=== PATIENT | female | born 1975 | race Caucasian/White ===

== ENCOUNTER 2016-07-22 11:48 | Observation (INO) | payer OTHER ==
--- NOTE | 2016-07-22 12:52 | PD ---
HPI Chief Complaint Patient sent from the office due to proteinuria Date Seen: Jul 22, 2016 Time Seen: 12:38 Travel History International Travel<30 Days: No Contact w/Intl Traveler<30Days: No Known Affected Area: No History of Present Illness HPI Patient is a 41-year-old white female who is at 35 weeks 5 days sent here from Dr. Martinez's office due to 3+ proteinuria. Blood pressure was 132/84 at her office visit today patient states she has a small headache yesterday but that has completely resolved by today Para: 0 : 2 Last Menstrual Period: Jul 22, 2016 (LLOYD is August 21, 2016) Allergies-Medications (Allergen,Severity, Reaction): Coded Allergies: No Known Allergies (Verified Allergy, Mild, 10/19/05) Physical Exam Narrative GENERAL: Well-nourished, well-developed patient. SKIN: Warm and dry. HEAD: Normocephalic and atraumatic. EYES: No scleral icterus. No injection or drainage. ENT: No nasal drainage noted. Mucous membranes pink. Airway patent. NECK: Supple, trachea midline. No JVD. CARDIOVASCULAR: Regular rate and rhythm without murmurs, gallops, or rubs. RESPIRATORY: Breath sounds equal bilaterally. No accessory muscle use. BREASTS: Bilateral exam showed no masses , no retractions, no nipple discharge. ABDOMEN/GI: Abdomen soft, non-tender, bowel sounds present, no rebound, no guarding Gravid to [-] weeks size Fundal Height: [35-] GENITOURINARY: External Genitalia: intact and normal in appearance BUS glands: [-Normal] Cervix: [-] Dilatation: [-] Effacement: [-] Station: [-] Presentation: [-] Membranes: [intact or ruptured] Uterine Contractions: [-] None FHT's: Category: [1-] Baseline: [135-] Reactive: [-] Variability: Moderate Decels: [Absent-] accelerations present EXTREMITIES: No cyanosis or edema. BACK: Nontender without obvious deformity. No CVA tenderness. NEUROLOGICAL: Awake and alert. Motor and sensory grossly within normal limits. Five out of 5 muscle strength in all muscle groups. Normal speech. Data Data Vital Signs Reviewed: Yes Orders Vital Signs (Adult) .ON ADMISSION (07/22/16 12:35) ^ Labor Status (07/22/16 12:35) Urinalysis - C+S If Indicated (07/22/16 12:35) Diet Liquid (07/22/16 Lunch) Cbc No Diff, Includes Plts (07/22/16 12:35) Comprehensive Metabolic Panel (07/22/16 12:35) Uric Acid (07/22/16 12:35) Us Ob Bpp Wo Nst (07/22/16 12:35) Labs Laboratory Tests Test 07/22/16 07/22/16 12:15 13:00 Urine Color YELLOW Urine Turbidity HAZY Urine pH 5.5 Urine Specific [place] 1.026 Urine Protein 100 mg/dL Urine Glucose (UA) NEG mg/dL Urine Ketones NEG mg/dL Urine Occult Blood SMALL Urine Nitrite NEG Urine Bilirubin NEG Urine Urobilinogen LESS THAN 2.0 MG/DL Urine Leukocyte Esterase NEG Urine RBC 1 /hpf Urine WBC 3 /hpf Urine Squamous Epithelial 2 /hpf Cells Urine Calcium Oxalate Crystals FEW /hpf Urine Bacteria FEW /hpf Urine Hyaline Casts 1 /lpf Urine Mucus FEW /lpf Microscopic Urinalysis Comment CULT NOT INDICATED White Blood Count 10.1 TH/MM3 Red Blood Count 4.13 MIL/MM3 Hemoglobin 12.2 GM/DL Hematocrit 36.2 % Mean Corpuscular Volume 87.7 FL Mean Corpuscular Hemoglobin 29.6 PG Mean Corpuscular Hemoglobin 33.7 % Concent Red Cell Distribution Width 13.2 % Platelet Count 149 TH/MM3 Mean Platelet Volume 11.4 FL Sodium Level 141 MEQ/L Potassium Level 4.2 MEQ/L Chloride Level 111 MEQ/L Carbon Dioxide Level 19.7 MEQ/L Anion Gap 10 MEQ/L Blood Urea Nitrogen 15 MG/DL Creatinine 0.85 MG/DL Estimat Glomerular Filtration 74 ML/MIN Rate Random Glucose 67 MG/DL Uric Acid 7.1 MG/DL Calcium Level 9.0 MG/DL Total Bilirubin 0.2 MG/DL Aspartate Amino Transf 19 U/L (AST/SGOT) Alanine Aminotransferase 16 U/L (ALT/SGPT) Alkaline Phosphatase 132 U/L Total Protein 6.2 GM/DL Albumin 2.5 GM/DL MDM Plan 41 yo at 35-36 weeks gestation with proteinuria and elevated blood pressures Will admit for observation Betamethasone for lung maturity Diagnosis Diagnosis: Primary Impression: Gestational hypertension Additional Impressions: 35 weeks gestation of Advanced maternal age, 1st Lori Randolph MD Jul 22, 2016 12:52
[2016-07-22 12:58] LABS: BACTERIA, URINE FEW /hpf; BLOOD, URINE SMALL (NEG); CALCIUM OXALATE CRYSTALS,URINE FEW /hpf; COMMENT (UR) CULT NOT INDICATED; CULTURE IF INDICATED CULT NOT INDICATED; GLUCOSE,URINE NEG (NEG); HYALINE CAST, URINE 1 /lpf (RARE); KETONE, URINE NEG (NEG); MUCUS URINE FEW /lpf (OCC); NITRITE,URINE NEG (NEG); PH, URINE 5.5 (5.0-8.5); SQUAMOUS EPITHELIAL CELL URINE 2 /hpf (0-5); URINE COLOR YELLOW (YELLW/STRAW)
[2016-07-22 12:59] VITALS: BP 158/95; PULSE 77
[2016-07-22 13:34] LABS: HEMATOCRIT 36.2 % (35.0-46.0); MEAN CELL VOLUME 87.7 FL (80.0-100.0); MEAN CORPUSCULAR HEMOGLOBIN 29.6 PG (27.0-34.0); MEAN CORPUSCULAR HGB CONC 33.7 % (32.0-36.0); PLATELET COUNT 149 TH/MM3 (150-450); RED BLOOD COUNT 4.13 MIL/MM3 (4.00-5.30); RED CELL DISTRIBUTION WIDTH 13.2 % (11.6-17.2); REVIEW FLAG FINAL; WHITE BLOOD COUNT 10.1 TH/MM3 (4.0-11.0)
[2016-07-22 13:54] LABS: ALT (GPT) 16 U/L (10-53); ANION GAP 10 MEQ/L (5-15); AST (GOT) 19 U/L (15-37); BICARBONATE 19.7 MEQ/L (21.0-32.0); BLOOD UREA NITROGEN 15 MG/DL (7-18); CHLORIDE 111 MEQ/L (98-107); GLOMERULAR FILTRATION RATE 74 ML/MIN (>89); POTASSIUM 4.2 MEQ/L (3.5-5.1); SODIUM (NA) 141 MEQ/L (136-145); URIC ACID 7.1 MG/DL (2.6-6.0)
[2016-07-22 13:57] LABS: ALKALINE PHOSPHATASE 132 U/L (45-117); TOTAL BILIRUBIN ADULT 0.2 MG/DL (0.2-1.0)
[2016-07-22] MEDS ORDERED: ZOLPIDEM TARTRATE 5 MG TAB PO PRN (14:15)
[2016-07-22] MEDS ORDERED: ACETAMINOPHEN 325 MG TAB PO PRN (14:15)
[2016-07-22] MEDS ORDERED: SODIUM CHLORIDE 0.9% FLUSH 5 ML FLUSH IVF PRN (14:15)
[2016-07-22] MEDS ORDERED: ONDANSETRON ODT 4 MG TAB PO PRN (14:15)
[2016-07-22 16:40] VITALS: BP 154/88; PULSE 78
[2016-07-22 16:41] VITALS: RESP 20
[2016-07-22] MEDS: BETAMETHASONE SOD PHOS/ACETATE SUSP 30 MG/5 ML VIAL IM SCH (16:54)
[2016-07-22 19:28] VITALS: BP 152/94; PULSE 79
[2016-07-22 19:29] VITALS: RESP 18; TEMP 98.3
[2016-07-22] MEDS ORDERED: SODIUM CHLORIDE 0.9% FLUSH 5 ML FLUSH IVF SCH (21:00)
[2016-07-22 23:19] VITALS: BP 136/68; PULSE 85
[2016-07-23 02:30] VITALS: BP 123/55; PULSE 71
[2016-07-23 04:28] LABS: AUTOMATED NEUTROPHIL # 10.9 TH/MM3 (1.8-7.7); BASOPHIL % 0.2 % (0.0-2.0); EOSINOPHIL % 0.1 % (0.0-4.0); HEMATOCRIT 36.3 % (35.0-46.0); HEMO FLAGS DIFF FINAL; LYMPHOCYTE # 1.2 TH/MM3 (1.0-4.8); MEAN CELL VOLUME 87.9 FL (80.0-100.0); MEAN CORPUSCULAR HEMOGLOBIN 29.8 PG (27.0-34.0); MONO % 1.5 % (0.0-8.0); NEUT % 88.2 % (16.0-70.0); PLATELET COUNT 163 TH/MM3 (150-450); RED BLOOD COUNT 4.13 MIL/MM3 (4.00-5.30); RED CELL DISTRIBUTION WIDTH 13.1 % (11.6-17.2); WHITE BLOOD COUNT 12.4 TH/MM3 (4.0-11.0)
[2016-07-23 05:19] LABS: INDIRECT BILIRUBIN 0.1 MG/DL (0.0-0.8); TOTAL BILIRUBIN ADULT 0.2 MG/DL (0.2-1.0)
[2016-07-23 07:06] VITALS: BP 124/68; PULSE 83
[2016-07-23 07:08] VITALS: RESP 20; TEMP 98
[2016-07-23] MEDS ORDERED: MULTIVIT/MIN/PREN/FOL AC/IRON PRENATAL TAB PO SCH (09:00)
[2016-07-23 11:37] VITALS: BP 143/74; PULSE 98
[2016-07-23 11:47] VITALS: TEMP 98
[2016-07-23 12:00] VITALS: RESP 18
--- NOTE | 2016-07-23 12:55 | HHI.PR ---
Subjective Remarks Doing well, Slight h/a. no scotoma or RUQ pain Ready to go home. Objective Vital Signs Date Time Temp Pulse Resp B/P Pulse Ox O2 Delivery O2 Flow Rate FiO2 07/23/16 12:00 18 07/23/16 11:47 98.0 07/23/16 11:37 98 143/74 07/23/16 07:08 20 07/23/16 07:08 98.0 07/23/16 07:06 83 124/68 07/23/16 02:30 71 123/55 07/22/16 23:19 85 136/68 07/22/16 19:29 98.3 18 07/22/16 19:28 79 152/94 07/22/16 16:41 20 07/22/16 16:40 78 154/88 07/22/16 12:59 77 158/95 Result Diagram: 07/23/16 0410 07/22/16 1300 Other Results Chest clear CV RRR Abd gravid Ext +1 swelling face, hands and feet,. DTRs are +3 no clonus Assessment and Plan Problem List: (1) 35 weeks gestation of Status: Acute (2) Advanced maternal age, 1st Status: Acute Assessment and Plan HD #1 Preeclampsia labs are normal and bp are acceptable, will d/c home and go to bedrest Will return for S.S of preeclampsia. . Daniel Sepulveda MD Jul 23, 2016 12:55
[2016-07-23] MEDS: BETAMETHASONE SOD PHOS/ACETATE SUSP 30 MG/5 ML VIAL IM SCH (13:25)
[2016-07-23 14:25] LABS: URINE TOTAL PROTEIN TIMED 217.2 MG/DL
== END 2016-07-23 13:57 | disposition home or self-care (01) ==
LOC: HOBED 11:48 → H2EA 14:25
PROVIDERS: ADMIT Obstetrics & Gynecology; ATTEND Obstetrics & Gynecology
DX: O14.93 Unspecified pre-eclampsia, third trimester (principal); O09.523 Supervision of elderly multigravida, third trimester; Z3A.35 35 weeks gestation of pregnancy
CPT/HCPCS: 36415; 76816; 76819; 76820; 80053; 80076; 81001; 84157; 84550; 85025; 85027; 99285; G0378; J0702

== ENCOUNTER 2016-07-29 12:09 | Inpatient (IN) | payer OTHER ==
[2016-07-29] VITALS (29 sets, daily range): BP systolic 121–158; BP diastolic 82–99; PULSE 65–103; RESP 14–18; TEMP 98.1–98.6
[~2016-07-29] VITALS: Ht 167.6 cm; Wt 83.0 kg
[2016-07-29] MEDS ORDERED: SODIUM CHLORIDE 0.9% FLUSH 5 ML FLUSH IVF SCH (12:30)
[2016-07-29] MEDS ORDERED: ALUMINUM/MAGNESIUM/SIMETH 30 ML CUP PO PRN (12:30)
[2016-07-29] MEDS ORDERED: ACETAMINOPHEN 325 MG TAB PO PRN (12:30)
[2016-07-29] MEDS ORDERED: ONDANSETRON ODT 4 MG TAB PO PRN (12:30)
[2016-07-29] MEDS ORDERED: SODIUM CHLORIDE 0.9% FLUSH 5 ML FLUSH IVF PRN (12:30)
[2016-07-29] MEDS ORDERED: BETAMETHASONE SOD PHOS/ACETATE SUSP 30 MG/5 ML VIAL IM SCH (12:30)
[2016-07-29] MEDS ORDERED: ZOLPIDEM TARTRATE 5 MG TAB PO PRN (12:30)
[2016-07-29] MEDS ORDERED: LACTATED RINGER'S 1000 ML INJ 1,000 ML IV SCH (13:00)
[2016-07-29 13:55] LABS: BACTERIA, URINE MOD /hpf; BLOOD, URINE SMALL (NEG); COMMENT (UR) CULTURE INDICATED; CULTURE IF INDICATED CULTURE INDICATED; GLUCOSE,URINE NEG (NEG); HYALINE CAST, URINE 8 /lpf (RARE); KETONE, URINE NEG (NEG); MUCUS URINE FEW /lpf (OCC); NITRITE,URINE NEG (NEG); SQUAMOUS EPITHELIAL CELL URINE 11 /hpf (0-5); URINE COLOR YELLOW (YELLW/STRAW)
[2016-07-29 13:55] LABS: AUTOMATED NEUTROPHIL # 6.3 TH/MM3 (1.8-7.7); BASOPHIL % 0.3 % (0.0-2.0); EOSINOPHIL # 0.2 TH/MM3 (0-0.4); EOSINOPHIL % 1.8 % (0.0-4.0); HEMATOCRIT 37.2 % (35.0-46.0); HEMO FLAGS DIFF FINAL; LYMPH % 24.3 % (9.0-44.0); LYMPHOCYTE # 2.3 TH/MM3 (1.0-4.8); MEAN CELL VOLUME 87.6 FL (80.0-100.0); MEAN CORPUSCULAR HEMOGLOBIN 28.8 PG (27.0-34.0); MEAN CORPUSCULAR HGB CONC 32.9 % (32.0-36.0); MONO % 7.8 % (0.0-8.0); NEUT % 65.8 % (16.0-70.0); PLATELET COUNT 156 TH/MM3 (150-450); RED BLOOD COUNT 4.25 MIL/MM3 (4.00-5.30); RED CELL DISTRIBUTION WIDTH 13.1 % (11.6-17.2); WHITE BLOOD COUNT 9.5 TH/MM3 (4.0-11.0)
[2016-07-29 14:03] LABS: AMPHETAMINE, URINE NEG (NEG); BARBITURATES, URINE NEG (NEG); COCAINE, URINE NEG (NEG)
[2016-07-29 14:24] LABS: POTASSIUM 3.9 MEQ/L (3.5-5.1); URIC ACID 9.6 MG/DL (2.6-6.0)
--- NOTE | 2016-07-29 15:10 | HHI.HP ---
HPI Chief Complaint admitted directly from office for hypertension in with proteinuria, PreEclampsia Date Seen: Jul 29, 2016 Time Seen: 14:00 Travel History International Travel<30 Days: No Contact w/Intl Traveler<30Days: No Known Affected Area: No History of Present Illness HPI 41 yo with single female IUP at 36w5d by LMP & embryo transfer (with Dr. Pepito Cota in [facility]), EDC 08/21/16, seen in office for visit , has been monitored more closely over past week due to new c/o headache at office visit 07/22/16, had workup and hospital evaluation at that time including 2 doses of betamethasone. 24h urine at that time showed protein <300mg and BPs were mild range. Pt has had twice/week visits this week with repeat 24h urine and PIH labs showing drastic changes, 24h urine protein >2.6 grams. Uric acid now 9.6 and plts dropping 156 most recent. BPs remain mild range and pt asymptomatic but due to proximity to term decision to admit for serial monitoring and possible induction of labor. Currently pt rates pain as 0/10 in pelvis, no contractions, no LOF or VB, good FM. No headache, vision changes, RUQ pain, nausea or edema. at bedside. 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 FIORD[employer]A) advanced maternal age h/o cervical dysplasia h/o PCOS Obstetric History Obstetric History G1 = MAB 2009 G2 = current, ECC 08/21/16, female, product of frozen embryo transfer Past Surgical History Narrative Surgical colposcopy 2012 LEE 2014 Family History Family History: Negative Social History Alcohol Use: No Tobacco Use: No Substance Abuse: No Allergies-Medications (Allergen,Severity, Reaction): Coded Allergies: No Known Allergies (Verified , 07/22/16) Review of Systems General / Constitutional: Weight Gain (c/w ), No: Fever, Chills, Other Eyes: No: Diploplia, Blurred Vision, Visual changes, Pain, Photophobia HENT: No: Headaches, Vertigo, Lightheadedness Cardiovascular: No: Irregular Rhythm, Chest Pain or Discomfort, Palpitations, Tachycardia, Syncope, Varicosities, Edema, Cyanosis Respiratory: No: Cough, Short of Breath, Other Gastrointestinal: No: Nausea, Vomiting, Diarrhea Genitourinary: Pelvic Pain (pressure in pelvis), No: Decreased Urinary Output , Oliguria Musculoskeletal: No: Limited ROM, Weakness, Cramping, Edema, Pain Skin: No Rash, No Itching, No Dryness, No Lumps, No Change in Pigmentation, No Change in Nails, No Alopecia, No Lesions Neurologic: No: Weakness, Dizziness, Syncope, Focal Abnormalities, Coordination Problem, Headache, Slurred Speech, Seizures Psychiatric: No: Depression, Suicidal Ideations, Homicidal Ideation Endocrine: No: Heat Intolerance, Cold Intolerance, Polydipsia, Polyuria, Other Physical Exam Vital Signs Date Time Temp Pulse Resp B/P Pulse Ox O2 Delivery O2 Flow Rate FiO2 07/29/16 14:26 68 133/89 07/29/16 13:54 65 144/83 07/29/16 13:18 16 07/29/16 13:18 98.1 07/29/16 13:17 79 148/88 Narrative GENERAL: Well-nourished, well-developed patient. SKIN: Warm and dry. HEAD: Normocephalic and atraumatic. EYES: No scleral icterus. No injection or drainage. ENT: No nasal drainage noted. Mucous membranes pink. Airway patent. NECK: Supple, trachea midline. No JVD. CARDIOVASCULAR: Regular rate and rhythm without murmurs, gallops, or rubs. RESPIRATORY: Breath sounds equal bilaterally. No accessory muscle use. BREASTS: deferred. ABDOMEN/GI: Abdomen soft, non-tender, bowel sounds present, no rebound, no guarding Gravid to [36] weeks size Fundal Height: [37] GENITOURINARY: External Genitalia: intact and normal in appearance BUS glands: [wnl] Cervix: [posterior] Dilatation: [cl] Effacement: [th] Station: [-3] Presentation: [vtx] Membranes: [intact] Uterine Contractions: [none] FHT's: Category: [I] Baseline: [130s] Reactive: [y] Variability: [y] Decels: [n] EXTREMITIES: No cyanosis or edema. BACK: Nontender without obvious deformity. No CVA tenderness. NEUROLOGICAL: Awake and alert. Motor and sensory grossly within normal limits. Five out of 5 muscle strength in all muscle groups. Normal speech. Normal reflexes. Data Data Vital Signs Reviewed: Yes Orders Place In Observation (07/29/16 ) Diet Liquid (07/29/16 Lunch) Vital Signs (Adult) GARETH.[id number] AWAKE (07/29/16 12:28) ^ Heart (07/29/16 12:28) Activity Bed Rest With Brp (07/29/16 12:28) Complete Blood Count With Diff (07/29/16 12:28) Basic Metabolic Panel (Bmp) (07/29/16 12:28) Uric Acid (07/29/16 12:28) Urinalysis - C+S If Indicated (07/29/16 12:28) Lactated Ringer's 1000 Ml Inj (Lr 1000 M (07/29/16 13:00) Acetaminophen (Tylenol) (07/29/16 12:30) Al-Mag Hy-Si 40-40-4 Mg/Ml Liq (Mag-Al P (07/29/16 12:30) Sodium Chloride 0.9% Flush (Ns Flush) (07/29/16 12:30) Sodium Chloride 0.9% Flush (Ns Flush) (07/29/16 12:30) Zolpidem (Ambien) (07/29/16 12:30) Ondansetron Odt (Zofran Odt) (07/29/16 12:30) Ob/Psych Drug Screen, Urine (07/29/16 12:28) Hold Clot (07/29/16 12:28) Betamethasone Inj ([place] Soluspan In (07/29/16 12:30) Specimen To Be Collected PRN (07/29/16 12:28) Urine Culture (07/29/16 13:00) Ur Bath Salts (07/29/16 13:00) Ur Heroin (07/29/16 13:00) Ur K2 Spice (07/29/16 13:00) Ur Ecstasy (07/29/16 13:00) Ur Methadone (07/29/16 13:00) Phencyclidine Urine (Pcp) (07/29/16 13:00) Cbc No Diff, Includes Plts (07/29/16 20:00) Comprehensive Metabolic Panel (07/29/16 20:00) Uric Acid (07/29/16 20:00) Diet Heart Healthy (07/29/16 Dinner) Diet Clear Liquid (07/30/16 Breakfast) Cbc No Diff, Includes Plts (07/30/16 05:00) Comprehensive Metabolic Panel (07/30/16 05:00) Uric Acid (07/30/16 05:00) Labs Laboratory Tests Test 07/29/16 07/29/16 13:00 13:33 Urine Color YELLOW Urine Turbidity HAZY Urine pH 6.0 Urine Specific [place] 1.027 Urine Protein 300 Urine Glucose (UA) NEG Urine Ketones NEG Urine Occult Blood SMALL Urine Nitrite NEG Urine Bilirubin NEG Urine Urobilinogen LESS THAN 2.0 Urine Leukocyte Esterase NEG Urine RBC 4 Urine WBC 10 Urine Squamous Epithelial 11 Cells Urine Bacteria MOD Urine Hyaline Casts 8 Urine Mucus FEW Microscopic Urinalysis Comment CULTURE INDICATED Urine Opiates Screen NEG Urine Barbiturates Screen NEG Urine Amphetamines Screen NEG Urine Benzodiazepines Screen NEG Urine Cocaine Screen NEG Urine Cannabinoids Screen NEG White Blood Count 9.5 Red Blood Count 4.25 Hemoglobin 12.2 Hematocrit 37.2 Mean Corpuscular Volume 87.6 Mean Corpuscular Hemoglobin 28.8 Mean Corpuscular Hemoglobin 32.9 Concent Red Cell Distribution Width 13.1 Platelet Count 156 Mean Platelet Volume 12.0 Neutrophils (%) (Auto) 65.8 Lymphocytes (%) (Auto) 24.3 Monocytes (%) (Auto) 7.8 Eosinophils (%) (Auto) 1.8 Basophils (%) (Auto) 0.3 Neutrophils # (Auto) 6.3 Lymphocytes # (Auto) 2.3 Monocytes # (Auto) 0.7 Eosinophils # (Auto) 0.2 Basophils # (Auto) 0.0 CBC Comment DIFF FINAL Differential Comment Sodium Level 140 Potassium Level 3.9 Chloride Level 108 Carbon Dioxide Level 22.0 Anion Gap 10 Blood Urea Nitrogen 16 Creatinine 1.01 Estimat Glomerular Filtration 61 Rate Random Glucose 82 Uric Acid 9.6 Calcium Level 8.3 Band and Hold Date/Time Procedure Status Source Growth 07/29/16 13:00 Urine Culture Received Urine Clean Catch Pending Assessment/Plan Problem List: (1) Pre-eclampsia (2) Gestational [-induced] hypertension without significant proteinuria , third trimester (3) Elderly primigravida in third trimester Assessment and Plan 41 yo with IUP at 35w6d admit for GHTN with proteinuria and lab changes c/w PreEclampsia 1) PreEclampsia: BP mild ranges but labs support severe; pt is tentative to induce and desires repeat labs in 8h; due to no symptoms and mild pressures ok to repeat labs at 8pm, if labs continue to devolve d/w pt cytotec induction; r/b /a including risk of failed induction, risk of ; d/w pt and indication for magnesium sulfate therapy if pressures become severe and/or based on clinical picture; AQA, will plan labs at 8p if all other things remain stable and evaluate for induction at that time Labs: Plts: 193 > 152 UA 8.6 > 9.6 AST 14 > 17 ALT 11 > 10 Hgb 12.2 24h urine 07/27/16: 2642mg protein 2) GBS neg 3) h/o infertility, this is product of frozen embryo transfer with [facility] Dr. Pepito Cota in [facility] 4) AMA: normal anatomy scan, negative cfDNA & msAFP; reassuring testing starting this week in office 5) status: vertex, female, AGA, anterior placenta with accessory lobe posteriorly on imaging Discharge Planning not meeting criteria Kathleen Leung MD Jul 29, 2016 15:10
[2016-07-29 16:20] LABS: ALT (GPT) 13 U/L (10-53); AST (GOT) 17 U/L (15-37)
[2016-07-29 20:14] LABS: HEMATOCRIT 35.8 % (35.0-46.0); MEAN CELL VOLUME 86.4 FL (80.0-100.0); MEAN CORPUSCULAR HEMOGLOBIN 29.1 PG (27.0-34.0); MEAN CORPUSCULAR HGB CONC 33.7 % (32.0-36.0); PLATELET COUNT 160 TH/MM3 (150-450); RED BLOOD COUNT 4.14 MIL/MM3 (4.00-5.30); RED CELL DISTRIBUTION WIDTH 12.8 % (11.6-17.2); REVIEW FLAG FINAL; WHITE BLOOD COUNT 9.7 TH/MM3 (4.0-11.0)
[2016-07-29 20:40] LABS: ALKALINE PHOSPHATASE 138 U/L (45-117); ALT (GPT) 13 U/L (10-53); ANION GAP 8 MEQ/L (5-15); AST (GOT) 13 U/L (15-37); BLOOD UREA NITROGEN 15 MG/DL (7-18); CHLORIDE 109 MEQ/L (98-107); GLOMERULAR FILTRATION RATE 59 ML/MIN (>89); POTASSIUM 3.8 MEQ/L (3.5-5.1); SODIUM (NA) 140 MEQ/L (136-145); TOTAL BILIRUBIN ADULT 0.3 MG/DL (0.2-1.0); URIC ACID 9.7 MG/DL (2.6-6.0)
[2016-07-30] VITALS (71 sets, daily range): BP systolic 133–171; BP diastolic 74–103; PULSE 16–91; RESP 16–18; TEMP 97.7–99
[2016-07-30 05:20] LABS: HEMATOCRIT 35.9 % (35.0-46.0); MEAN CELL VOLUME 87.6 FL (80.0-100.0); MEAN CORPUSCULAR HEMOGLOBIN 29.6 PG (27.0-34.0); MEAN CORPUSCULAR HGB CONC 33.8 % (32.0-36.0); PLATELET COUNT 147 TH/MM3 (150-450); RED BLOOD COUNT 4.09 MIL/MM3 (4.00-5.30); RED CELL DISTRIBUTION WIDTH 13.3 % (11.6-17.2); REVIEW FLAG FINAL; WHITE BLOOD COUNT 11.5 TH/MM3 (4.0-11.0)
[2016-07-30 05:49] LABS: ANION GAP 11 MEQ/L (5-15); AST (GOT) 16 U/L (15-37); BICARBONATE 21.2 MEQ/L (21.0-32.0); BLOOD UREA NITROGEN 14 MG/DL (7-18); CHLORIDE 108 MEQ/L (98-107); GLOMERULAR FILTRATION RATE 62 ML/MIN (>89); POTASSIUM 3.8 MEQ/L (3.5-5.1); SODIUM (NA) 140 MEQ/L (136-145); URIC ACID 9.6 MG/DL (2.6-6.0)
[2016-07-30 05:52] LABS: ALKALINE PHOSPHATASE 138 U/L (45-117); ALT (GPT) 12 U/L (10-53); TOTAL BILIRUBIN ADULT 0.2 MG/DL (0.2-1.0)
--- NOTE | 2016-07-30 08:47 | PD.OB.ANTE ---
Subjective Diagnosis: (1) Pre-eclampsia Diagnosis: Principal (2) Gestational [-induced] hypertension without significant proteinuria , third trimester Diagnosis: Principal (3) Elderly primigravida in third trimester Diagnosis: Secondary Interval History No complaints, denies OQUENDO, vision changes, RUQ pain or edema, no nausea, desires regular diet for breakfast. Pain 0/10. Antepartum ROS: Reports: movement normal, Denies: New complaints, Loss of fluid, Vaginal bleeding, Contractions, Other Objective Vital Signs Vital Signs Date Time Temp Pulse Resp B/P Pulse Ox O2 Delivery O2 Flow Rate FiO2 07/30/16 08:14 98.3 07/30/16 08:04 18 07/30/16 08:00 68 155/99 07/30/16 07:30 75 142/89 07/30/16 07:05 16 07/30/16 07:00 64 157/94 07/30/16 06:37 63 145/93 07/30/16 06:30 72 151/101 07/30/16 06:04 16 07/30/16 06:00 63 151/87 07/30/16 05:30 75 150/95 07/30/16 05:27 98.1 07/30/16 05:26 18 07/30/16 05:00 62 149/90 07/30/16 04:30 64 145/94 07/30/16 04:00 62 139/86 07/30/16 03:30 63 07/30/16 03:30 133/87 07/30/16 03:13 18 07/30/16 03:00 75 134/85 07/30/16 02:30 70 07/30/16 02:30 145/83 07/30/16 02:00 68 141/82 07/30/16 01:30 69 141/87 07/30/16 01:12 97.7 16 07/30/16 01:00 77 150/91 07/30/16 00:50 18 07/30/16 00:30 71 143/78 07/29/16 23:30 69 137/88 07/29/16 22:37 16 07/29/16 22:30 78 139/85 07/29/16 22:00 75 136/85 07/29/16 21:39 16 07/29/16 21:30 77 121/88 07/29/16 21:01 103 3/17/17 21:01 154/99 07/29/16 20:47 98.2 18 07/29/16 20:30 72 149/82 07/29/16 19:51 98.6 18 07/29/16 19:51 16 07/29/16 19:30 72 144/89 07/29/16 19:00 71 136/86 07/29/16 18:30 81 135/90 07/29/16 18:00 71 132/87 07/29/16 17:30 84 156/99 07/29/16 17:05 16 07/29/16 17:00 73 150/91 07/29/16 16:54 98.1 07/29/16 16:41 76 140/94 07/29/16 16:41 14 07/29/16 16:40 70 143/99 07/29/16 15:47 76 158/89 07/29/16 15:32 75 152/85 07/29/16 15:31 87 148/90 07/29/16 15:01 72 132/88 07/29/16 14:37 74 145/82 07/29/16 14:26 68 133/89 07/29/16 13:54 65 144/83 07/29/16 13:18 16 07/29/16 13:18 98.1 07/29/16 13:17 79 148/88 Lab & Micro Results Test 07/29/16 07/29/16 07/29/16 07/30/16 13:00 13:33 20:00 04:52 Urine Color YELLOW Urine Turbidity HAZY Urine pH 6.0 Urine Specific [place] 1.027 Urine Protein 300 mg/dL Urine Glucose (UA) NEG mg/dL Urine Ketones NEG mg/dL Urine Occult Blood SMALL Urine Nitrite NEG Urine Bilirubin NEG Urine Urobilinogen LESS THAN 2.0 MG/DL Urine Leukocyte Esterase NEG Urine RBC 4 /hpf Urine WBC 10 /hpf Urine Squamous Epithelial 11 /hpf Cells Urine Bacteria MOD /hpf Urine Hyaline Casts 8 /lpf Urine Mucus FEW /lpf Microscopic Urinalysis Comment CULTURE INDICATED Urine Opiates Screen NEG Urine Barbiturates Screen NEG Urine Amphetamines Screen NEG Urine Benzodiazepines Screen NEG Urine Cocaine Screen NEG Urine Cannabinoids Screen NEG White Blood Count 9.5 TH/MM3 9.7 TH/MM3 11.5 TH/MM3 Red Blood Count 4.25 MIL/MM3 4.14 MIL/MM3 4.09 MIL/MM3 Hemoglobin 12.2 GM/DL 12.0 GM/DL 12.1 GM/DL Hematocrit 37.2 % 35.8 % 35.9 % Mean Corpuscular Volume 87.6 FL 86.4 FL 87.6 FL Mean Corpuscular Hemoglobin 28.8 PG 29.1 PG 29.6 PG Mean Corpuscular Hemoglobin 32.9 % 33.7 % 33.8 % Concent Red Cell Distribution Width 13.1 % 12.8 % 13.3 % Platelet Count 156 TH/MM3 160 TH/MM3 147 TH/MM3 Mean Platelet Volume 12.0 FL 11.8 FL 12.1 FL Neutrophils (%) (Auto) 65.8 % Lymphocytes (%) (Auto) 24.3 % Monocytes (%) (Auto) 7.8 % Eosinophils (%) (Auto) 1.8 % Basophils (%) (Auto) 0.3 % Neutrophils # (Auto) 6.3 TH/MM3 Lymphocytes # (Auto) 2.3 TH/MM3 Monocytes # (Auto) 0.7 TH/MM3 Eosinophils # (Auto) 0.2 TH/MM3 Basophils # (Auto) 0.0 TH/MM3 CBC Comment DIFF FINAL Differential Comment Sodium Level 140 MEQ/L 140 MEQ/L 140 MEQ/L Potassium Level 3.9 MEQ/L 3.8 MEQ/L 3.8 MEQ/L Chloride Level 108 MEQ/L 109 MEQ/L 108 MEQ/L Carbon Dioxide Level 22.0 MEQ/L 23.0 MEQ/L 21.2 MEQ/L Anion Gap 10 MEQ/L 8 MEQ/L 11 MEQ/L Blood Urea Nitrogen 16 MG/DL 15 MG/DL 14 MG/DL Creatinine 1.01 MG/DL 1.04 MG/DL 0.99 MG/DL Estimat Glomerular Filtration 61 ML/MIN 59 ML/MIN 62 ML/MIN Rate Random Glucose 82 MG/DL 95 MG/DL 99 MG/DL Uric Acid 9.6 MG/DL 9.7 MG/DL 9.6 MG/DL Calcium Level 8.3 MG/DL 8.4 MG/DL 8.4 MG/DL Aspartate Amino Transf 17 U/L 13 U/L 16 U/L (AST/SGOT) Alanine Aminotransferase 13 U/L 13 U/L 12 U/L (ALT/SGPT) Band and Hold Total Bilirubin 0.3 MG/DL 0.2 MG/DL Alkaline Phosphatase 138 U/L 138 U/L Total Protein 5.7 GM/DL 5.4 GM/DL Albumin 2.2 GM/DL 2.1 GM/DL Date/Time Procedure Status Source Growth 07/29/16 13:00 Urine Culture Received Urine Clean Catch Pending Physical Exam GENERAL: Well-nourished, well-developed patient. CARDIOVASCULAR: Regular rate and rhythm without murmurs, gallops, or rubs. RESPIRATORY: Breath sounds equal bilaterally. No accessory muscle use. ABDOMEN/GI: Abdomen soft, non-tender. Fundus: [c/w dates] GENITOURINARY: External Genitalia: defer this check; yesterday CLP FHT's: Category: [I] Baseline: [130s] Reactive: [y] Variability: [y] Decels: [n] EXTREMITIES: No cyanosis or edema, non-tender, without signs of DVT. Assessment and Plan Problem List: (1) Pre-eclampsia Status: Acute (2) Gestational [-induced] hypertension without significant proteinuria , third trimester Status: Acute (3) Elderly primigravida in third trimester Status: Acute Assessment and Plan 41 yo with IUP at 36w6d admit for GHTN with proteinuria and lab changes c/w PreEclampsia 1) PreEclampsia: BP mild ranges on admission but increasing to borderline severe over last 24h; labs also support severe PreE; pt was tentative to induce yesterday, due to no symptoms and mild pressures yesterday labs were repeated at q8h interval and this AM continue to support severe PreE; at this time will allow to eat breakfast, shower, then transfer to labor side and start cytotec induction; continue to monitor closely and will plan magnesium sulfate therapy if pressures become severe and/or based on clinical picture; AQA, pt consents to induction at this time Labs: Plts: 193 > 152 > 147 UA 8.6 > 9.6 > 9.6 AST 17 > 13 > 16 ALT 13 > 13 > 12 Hgb 12.2 > 12.1 24h urine 07/27/16: 2642mg protein 2) GBS neg, aware 3) h/o infertility, this is product of frozen embryo transfer with [facility], aware 4) AMA: normal anatomy scan, negative cfDNA & msAFP; reassuring testing starting this week in office 5) status: vertex, female, AGA, anterior placenta with accessory lobe posteriorly on imaging Kathleen Leung MD Jul 30, 2016 08:47
[2016-07-30] MEDS ORDERED: SODIUM CHLOR 0.9% 1000 ML INJ 1,000 ML OTHER PRN (08:49)
[2016-07-30] MEDS ORDERED: LACTATED RINGER'S 1000 ML INJ 1,000 ML IV PRN (08:49)
[2016-07-30] MEDS ORDERED: ONDANSETRON HCL 4 MG/2 ML VIAL IV PRN (09:00)
[2016-07-30] MEDS ORDERED: OXYTOCIN 30 UNITS-500ML PREMIX 500 ML IV ONE (09:00)
[2016-07-30] MEDS ORDERED: LIDOCAINE HCL 1% 50 ML VIAL I-DERMAL PRN (09:00)
[2016-07-30] MEDS ORDERED: CITRIC ACID-SODIUM CITRATE LIQ 30 ML UDC PO SCH (09:00)
[2016-07-30] MEDS ORDERED: SODIUM CHLORID 0.9% 500 ML INJ 500 ML IV PRN (09:00)
[2016-07-30] MEDS ORDERED: LIDOCAINE HCL 1% 50 ML VIAL INFIL PRN (09:00)
[2016-07-30] MEDS ORDERED: MINERAL OIL 10 ML VIAL TOPICAL PRN (09:00)
[2016-07-30] MEDS ORDERED: SODIUM CHLOR 0.9% 1000 ML INJ 1,000 ML IV PRN (09:09)
[2016-07-30] MEDS ORDERED: CALNTAB (09:47)
[2016-07-30] MEDS ORDERED: MISOPROSTOL 25 MCG SUPP VAGINAL ONE ×2 (10:00→15:30)
[2016-07-30] MEDS ORDERED: PENICILLIN G POTASSIUM INJ 5,000,000 UNITS in SODIUM CHLORIDE 0.9% INJ 100 ML IV ONE (10:30)
[2016-07-30] MEDS: LACTATED RINGER'S 1000 ML INJ 1,000 ML IV SCH ×2 (11:03→16:49)
[2016-07-30] MEDS ORDERED: PENICILLIN G POTASSIUM INJ 2,500,000 UNITS in SODIUM CHLORIDE 0.9% INJ 100 ML IV SCH (14:30)
[2016-07-31] VITALS (196 sets, daily range): BP systolic 122–170; BP diastolic 70–112; PULSE 65–123; RESP 16–18; TEMP 97.5–98.3; O2SAT 94–100
[2016-07-31] MEDS ORDERED: OXYTOCIN 30 UNITS/NS 500ML PREMIX IV SCH
[2016-07-31] MEDS: LACTATED RINGER'S 1000 ML INJ 1,000 ML IV SCH ×3 (00:49→11:00)
[2016-07-31] MEDS ORDERED: fentaNYL 2MCG-BUPIV 0.125% INJ 100 ML ONE (03:18)
[2016-07-31] MEDS ORDERED: NO SYSTEM NARCOTICS XX PRN (04:30)
[2016-07-31] MEDS ORDERED: DO NOT ADMINISTER ANTICOAGULANTS XX PRN (04:30)
[2016-07-31] MEDS ORDERED: fentaNYL 2MCG-BUPIV 0.125% 100 ML EPIDURAL SCH (04:30)
[2016-07-31] MEDS ORDERED: ePHEDrine/NS 25 MG/5 ML SYR IV PRN (04:30)
[2016-07-31] MEDS ORDERED: SODIUM CHLORIDE 0.9% FLUSH 5 ML FLUSH IV PRN ×2 (08:45→09:30)
[2016-07-31] MEDS ORDERED: SODIUM CHLORIDE 0.9% FLUSH 5 ML FLUSH IV SCH (09:00)
[2016-07-31] MEDS ORDERED: MAGNESIUM SULFATE 4 GM PREMIX 100 ML IV ONE (09:15)
[2016-07-31] MEDS ORDERED: CALCIUM GLUCONATE 10% 1 GM/10 ML VIAL IV PUSH PRN (09:15)
--- NOTE | 2016-07-31 09:21 | PD.OB.DELI ---
Delivery Date: Jul 31, 2016 Anesthesia: Epidural Episiotomy: None Vaginal Delivery: Normal (successful induction for PreEclampsia) Presentation: Vertex Nuchal Cord: None Delayed cord clamping (45 sec): Yes Infant: Female One Minute : 8 Five Minute : 8 Weight: 5#5oz Infant Care: Suctioned, Spontaneous crying, Responded to stimulation Placenta: Spontaneous delivery, Intact (accessory anterior lobe delivered with posterior placenta; all intact), 3 vessel cord Laceration: Vaginal laceration, 2 deg Repair: Chromic running Additional Information EBL 100 mL pt induced at 36w6d for severe PreEclampsia, delivered without complication at 37 wks healthy female ; will be treated with IV magnesium sulfate therapy PP for sz ppx Kathleen Leung MD Jul 31, 2016 09:21
[2016-07-31] MEDS ORDERED: DOCUSATE SODIUM 50 MG/SENNA 8.6 MG TAB PO PRN (09:30)
[2016-07-31] MEDS: SODIUM CHLORIDE 0.9% FLUSH 5 ML FLUSH IV SCH (09:30)
[2016-07-31] MEDS ORDERED: BENZOCAINE 20% TOPICAL SPRAY 60 ML CAN TOPICAL PRN (09:30)
[2016-07-31] MEDS ORDERED: WITCH HAZEL 50%/GLYCERIN 12.5% 40 PAD JAR TOPICAL PRN (09:30)
[2016-07-31] MEDS ORDERED: oxyCODONE/ACETAMINOPHEN 5 MG/325 MG TAB PO PRN ×2 (09:30)
[2016-07-31] MEDS ORDERED: ALUMINUM/MAGNESIUM/SIMETH 30 ML CUP PO PRN (09:30)
[2016-07-31] MEDS: MAGNESIUM SULFATE 40 GM PREMIX 1,000 ML IV SCH (09:46)
[2016-07-31] MEDS ORDERED: LABETALOL HCL 100 MG/20 ML VIAL ONE (10:22)
[2016-07-31] MEDS ORDERED: LABETALOL HCL 100 MG/20 ML VIAL IV ONE ×3 (10:30→10:50)
[2016-07-31] MEDS ORDERED: MEASLES, MUMPS, RUBELLA VACCINE 0.5 ML VIAL SQ ONE (16:00)
[2016-07-31] MEDS ORDERED: DIPHTH/TETANUS/ACEL PERTUSSIS (BOOSTER) 0.5 ML VIAL/PFS IM ONE (16:00)
[2016-07-31] MEDS: IBUPROFEN 600 MG TAB PO PRN ×2 (17:25→23:19)
[2016-07-31 18:52] LABS: HEMATOCRIT 37.2 % (35.0-46.0); MEAN CELL VOLUME 88.2 FL (80.0-100.0); MEAN CORPUSCULAR HEMOGLOBIN 28.7 PG (27.0-34.0); MEAN CORPUSCULAR HGB CONC 32.5 % (32.0-36.0); PLATELET COUNT 131 TH/MM3 (150-450); RED BLOOD COUNT 4.22 MIL/MM3 (4.00-5.30); RED CELL DISTRIBUTION WIDTH 13.2 % (11.6-17.2); REVIEW FLAG FINAL; WHITE BLOOD COUNT 18.9 TH/MM3 (4.0-11.0)
[2016-07-31 19:18] LABS: ALKALINE PHOSPHATASE 139 U/L (45-117); ALT (GPT) 14 U/L (10-53); ANION GAP 10 MEQ/L (5-15); AST (GOT) 25 U/L (15-37); BICARBONATE 26.3 MEQ/L (21.0-32.0); BLOOD UREA NITROGEN 13 MG/DL (7-18); CHLORIDE 103 MEQ/L (98-107); GLOMERULAR FILTRATION RATE 62 ML/MIN (>89); POTASSIUM 4.6 MEQ/L (3.5-5.1); SODIUM (NA) 139 MEQ/L (136-145); TOTAL BILIRUBIN ADULT 0.3 MG/DL (0.2-1.0); URIC ACID 8.7 MG/DL (2.6-6.0)
[2016-08-01] VITALS (103 sets, daily range): BP systolic 135–165; BP diastolic 84–96; PULSE 66–92; RESP 16–20; TEMP 97.5–98.1; O2SAT 96–100
[2016-08-01] MEDS: LACTATED RINGER'S 1000 ML INJ 1,000 ML IV SCH (03:17)
[2016-08-01] MEDS: MAGNESIUM SULFATE 40 GM PREMIX 1,000 ML IV SCH (03:19)
[2016-08-01 06:04] LABS: HEMATOCRIT 36.8 % (35.0-46.0); MEAN CELL VOLUME 87.4 FL (80.0-100.0); MEAN CORPUSCULAR HEMOGLOBIN 29.8 PG (27.0-34.0); MEAN CORPUSCULAR HGB CONC 34.1 % (32.0-36.0); PLATELET COUNT 138 TH/MM3 (150-450); RED BLOOD COUNT 4.21 MIL/MM3 (4.00-5.30); RED CELL DISTRIBUTION WIDTH 13.5 % (11.6-17.2); REVIEW FLAG FINAL; WHITE BLOOD COUNT 16.3 TH/MM3 (4.0-11.0)
[2016-08-01 06:22] LABS: ALT (GPT) 15 U/L (10-53); ANION GAP 10 MEQ/L (5-15); AST (GOT) 27 U/L (15-37); BICARBONATE 25.6 MEQ/L (21.0-32.0); BLOOD UREA NITROGEN 10 MG/DL (7-18); CHLORIDE 102 MEQ/L (98-107); GLOMERULAR FILTRATION RATE 69 ML/MIN (>89); POTASSIUM 4.7 MEQ/L (3.5-5.1); SODIUM (NA) 138 MEQ/L (136-145); URIC ACID 8.3 MG/DL (2.6-6.0)
[2016-08-01 06:25] LABS: ALKALINE PHOSPHATASE 121 U/L (45-117); TOTAL BILIRUBIN ADULT 0.3 MG/DL (0.2-1.0)
[2016-08-01] MEDS: IBUPROFEN 600 MG TAB PO PRN (08:40)
[2016-08-01] MEDS: SODIUM CHLORIDE 0.9% FLUSH 5 ML FLUSH IV SCH (08:40)
[2016-08-01] MEDS: LABETALOL HCL 100 MG TAB PO SCH ×2 (08:41→21:37)
--- NOTE | 2016-08-01 08:47 | HHI.OB ---
Subjective Post Day: 1 Remarks PPD#1, Pre-eclampsia; BPR 150/80-90, new labetalol start,no significant c/o. Objective Vitals/I&O Vital Signs Date Time Temp Pulse Resp B/P Pulse Ox O2 Delivery O2 Flow Rate FiO2 08/01/16 08:00 72 149/85 08/01/16 07:28 20 08/01/16 07:25 80 96 08/01/16 07:20 80 98 08/01/16 07:15 77 97 08/01/16 07:10 84 98 08/01/16 07:05 86 97 08/01/16 07:00 75 08/01/16 07:00 84 153/96 97 08/01/16 06:55 83 97 08/01/16 06:50 83 97 08/01/16 06:45 83 97 08/01/16 06:40 82 99 08/01/16 06:35 85 98 08/01/16 06:30 87 97 08/01/16 06:25 87 98 08/01/16 06:20 87 98 08/01/16 06:15 18 08/01/16 06:15 91 100 08/01/16 06:10 69 97 08/01/16 06:05 72 97 08/01/16 06:00 69 142/87 98 08/01/16 06:00 68 08/01/16 05:55 69 97 08/01/16 05:50 68 98 08/01/16 05:45 68 97 08/01/16 05:40 68 97 08/01/16 05:35 74 97 08/01/16 05:30 85 99 08/01/16 05:28 18 08/01/16 05:25 66 98 08/01/16 05:20 66 98 08/01/16 05:15 67 98 08/01/16 05:10 66 98 08/01/16 05:05 77 99 08/01/16 05:01 69 147/85 08/01/16 05:00 75 96 08/01/16 04:55 74 97 08/01/16 04:50 75 99 08/01/16 04:45 87 96 08/01/16 04:40 84 96 08/01/16 04:30 85 97 08/01/16 04:25 89 97 08/01/16 04:20 84 97 08/01/16 04:15 83 18 96 08/01/16 04:10 82 98 08/01/16 04:05 84 97 08/01/16 04:01 86 165/93 08/01/16 04:00 86 98 08/01/16 03:55 84 96 08/01/16 03:50 88 98 08/01/16 03:45 82 97 08/01/16 03:40 84 98 08/01/16 03:35 90 100 08/01/16 03:30 86 100 08/01/16 03:25 86 99 08/01/16 03:20 97.5 08/01/16 03:20 92 100 08/01/16 03:15 71 97 08/01/16 03:14 16 08/01/16 03:10 70 97 08/01/16 03:05 69 97 08/01/16 03:01 71 139/84 08/01/16 03:00 70 18 96 08/01/16 02:55 70 97 08/01/16 02:50 69 97 08/01/16 02:45 70 98 08/01/16 02:40 80 97 08/01/16 02:35 81 97 08/01/16 02:30 72 97 08/01/16 02:25 70 97 08/01/16 02:20 70 97 08/01/16 02:15 70 97 08/01/16 02:10 69 97 08/01/16 02:05 70 96 08/01/16 02:01 69 151/85 08/01/16 02:00 71 96 08/01/16 01:55 72 97 08/01/16 01:50 72 96 08/01/16 01:45 74 98 08/01/16 01:40 80 98 08/01/16 01:35 81 99 08/01/16 01:30 80 97 08/01/16 01:25 81 97 08/01/16 01:20 76 96 08/01/16 01:19 16 08/01/16 01:15 79 97 08/01/16 01:10 84 96 08/01/16 01:05 85 96 08/01/16 01:01 78 151/90 08/01/16 01:00 80 97 08/01/16 01:00 16 08/01/16 00:55 81 97 08/01/16 00:50 90 98 08/01/16 00:45 85 97 08/01/16 00:40 86 96 08/01/16 00:35 82 98 08/01/16 00:30 86 08/01/16 00:30 97 08/01/16 00:25 98 08/01/16 00:25 86 08/01/16 00:20 87 08/01/16 00:20 97 08/01/16 00:15 85 08/01/16 00:15 98 08/01/16 00:10 98 08/01/16 00:10 87 08/01/16 00:05 99 08/01/16 00:05 78 08/01/16 00:01 76 150/89 08/01/16 00:00 79 08/01/16 00:00 97 07/31/16 23:55 82 99 07/31/16 23:51 97.8 07/31/16 23:50 87 100 07/31/16 23:45 81 98 07/31/16 23:40 80 99 07/31/16 23:35 82 98 07/31/16 23:30 83 99 07/31/16 23:25 82 97 07/31/16 23:20 90 97 07/31/16 23:15 80 96 07/31/16 23:11 16 07/31/16 23:10 87 97 07/31/16 23:05 75 96 07/31/16 23:00 82 07/31/16 23:00 77 154/81 96 07/31/16 22:55 79 96 07/31/16 22:50 77 95 07/31/16 22:45 79 95 07/31/16 22:40 79 96 07/31/16 22:35 79 95 07/31/16 22:30 79 95 07/31/16 22:25 79 95 07/31/16 22:20 78 07/31/16 22:20 96 07/31/16 22:15 80 07/31/16 22:15 95 07/31/16 22:10 96 07/31/16 22:10 80 07/31/16 22:05 80 96 07/31/16 22:01 79 155/86 07/31/16 22:00 84 96 07/31/16 21:55 87 96 3/19/17 21:45 86 96 1917 21:40 89 96 17 21:35 88 97 17 21:30 91 97 17 21:25 90 97 17 21:21 16 17 21:20 89 96 17 21:15 91 98 17 21:10 100 98 17 21:05 91 98 17 21:01 90 162/93 17 21:00 89 97 17 20:55 89 96 17 20:50 91 98 17 20:45 93 98 17 20:40 96 99 17 20:35 96 97 17 20:30 90 98 17 20:25 90 97 17 20:23 84 141/85 17 20:20 83 98 17 20:18 98.3 17 20:18 16 17 20:15 91 98 17 20:10 88 98 17 20:05 90 97 17 20:00 83 17 20:00 88 162/96 98 17 19:55 97 17 19:55 91 17 19:50 98 17 19:50 83 17 19:45 96 17 19:45 79 17 19:40 97 1917 19:40 81 1917 19:35 88 17 19:35 98 1917 19:30 97 1917 19:30 85 19/17 19:25 85 1917 19:25 97 17 19:20 96 17 19:20 82 17 19:15 86 17 19:15 97 17 19:10 84 17 19:10 97 1917 19:05 97 17 19:05 88 17 19:00 84 97 17 18:55 88 96 3/19/17 18:50 86 97 /19/17 18:45 91 97 /19/17 18:40 89 96 19/17 18:35 89 96 19/17 18:25 94 97 19/17 18:20 86 97 19/17 18:15 85 97 19/17 18:10 87 97 19/17 18:05 89 96 19/17 18:00 82 147/91 96 19/17 18:00 84 19/17 17:55 83 96 19/17 17:50 84 97 19/17 17:45 86 96 19/17 17:40 87 97 19/17 17:35 87 98 19/17 17:30 89 96 19/17 17:25 90 96 19/17 17:20 88 96 19/17 17:15 91 97 19/17 17:10 81 96 19/17 17:05 82 97 19/17 17:00 81 19/17 17:00 17 19/17 17:00 82 144/90 96 19/17 16:55 83 96 19/17 16:50 82 95 19/17 16:45 84 96 19/17 16:41 83 142/87 19/17 16:40 82 95 /19/17 16:35 82 95 /19/17 16:30 81 95 319/17 16:25 81 95 19/17 16:20 82 96 19/17 16:15 82 96 19/17 16:10 85 95 19/17 16:05 83 95 19/17 16:00 18 19/17 16:00 84 94 19/17 15:55 83 95 3/19/17 15:50 87 95 3/19/17 15:45 87 94 3/19/17 15:40 87 95 3/19/17 15:35 89 97 3/19/17 15:30 92 97 /19/17 15:05 91 151/94 19/17 15:00 17 19/17 15:00 97.7 19/17 14:25 94 97 3/19/17 14:20 92 97 17 14:15 89 97 07/31/17 14:00 99 97 07/31/17 13:55 87 97 07/31/17 13:52 88 142/79 07/31/17 13:50 86 96 07/31/17 13:45 85 96 07/31/17 13:40 87 95 07/31/17 13:35 85 96 17 13:30 85 96 17 13:25 87 96 17 13:20 88 96 07/31/17 13:15 92 95 17 13:10 94 96 17 13:05 99 97 17 13:00 97 95 17 13:00 18 17 12:55 96 94 17 12:44 94 145/87 17 11:40 94 159/96 97 07/31/17 11:40 96 17 11:35 97 98 17 11:30 89 98 17 11:25 89 97 07/31/17 11:20 86 99 07/31/17 11:15 91 98 07/31/17 11:10 88 98 17 11:05 89 97 17 11:02 89 157/92 17 11:00 17 17 11:00 98.0 17 10:50 87 97 07/31/17 10:45 88 17 10:45 88 158/97 98 07/31/17 10:40 90 97 07/31/17 10:35 90 97 07/31/17 10:30 93 144/87 96 07/31/17 10:30 96 07/31/17 10:25 98 97 07/31/17 10:20 101 97 07/31/17 10:15 101 165/82 96 07/31/17 10:15 102 07/31/17 10:10 103 07/31/17 10:10 105 165/95 96 07/31/17 10:05 108 162/90 96 07/31/17 10:05 107 07/31/17 10:00 114 159/91 97 17 10:00 100 3/19/17 09:55 104 153/92 07/31/16 09:55 97 07/31/16 09:55 106 07/31/16 09:50 104 160/90 07/31/16 09:50 100 07/31/16 09:50 97 07/31/16 09:47 98 161/88 07/31/16 09:45 103 150/95 07/31/16 09:31 105 152/94 07/31/16 09:29 97.8 18 07/31/16 09:15 110 156/93 07/31/16 09:00 123 150/91 Objective Remarks GENERAL: Well-nourished, well-developed patient. CARDIOVASCULAR: Regular rate and rhythm without murmurs, gallops, or rubs. RESPIRATORY: Breath sounds equal bilaterally. No accessory muscle use. ABDOMEN/GI: Abdomen soft, non-tender. Fundus: Firm, non-tender at umbilicus. GENITOURINARY: Light to moderate bleeding. EXTREMITIES: No cyanosis or edema, non-tender, without signs of DVT NEURO: nonfocal, DTR 1+. Medications and IVs Current Medications Medications (Trade) Dose Ordered Sig/Pao Route Start Time Stop Time Status Last Admin (Ambien) 5 mg HS PRN PO 07/29/16 12:30 Ondansetron HCl 4 mg 4 mg Q6H PRN PO 07/29/16 12:30 Lactated Ringer's 1,000 ml @ 125 mls/hr Q8H IV 07/30/16 08:49 07/31/16 00:49 (Lr 1000 ml Inj) 1,000 ml @ 3,000 mls/hr Q20M PRN IV 07/30/16 08:49 (Zofran Inj) 4 mg Q6H PRN IV 07/30/16 09:00 Mineral Oil 10 ml 10 ml UNSCH PRN TOPICAL 07/30/16 09:00 07/31/16 09:47 Oxytocin 500 ml @ 0 mls/hr TITRATE IV 07/31/16 00:00 07/31/16 00:40 Fentanyl/ Bupivacaine HCl 100 ml @ 0 mls/hr TITRATE EPIDURAL 07/31/16 04:30 Lactated Ringer's 1,000 ml @ 75 mls/hr [id number] IV 07/31/16 08:45 08/01/16 03:17 (Magnesium Sulfate 40 Gm Premix) 1,000 ml @ 50 mls/hr Q20H IV 07/31/16 08:45 08/01/16 03:19 (Calcium Gluconate Inj) 1 gm UNSCH PRN IV PUSH 07/31/16 09:15 (NS Flush) 2 ml BID IV 07/31/16 09:30 08/01/16 08:40 (NS Flush) 2 ml UNSCH PRN IV 07/31/16 09:30 (Motrin) 600 mg Q6H PRN PO 07/31/16 09:30 08/01/16 08:40 (Percocet 5-325 Mg) 1 tab Q4H PRN PO 07/31/16 09:30 (Percocet 5-325 Mg) 2 tab Q4H PRN PO 07/31/16 09:30 (Americaine 20% Top Spr) 1 spray Q4H PRN TOPICAL 07/31/16 09:30 (Tucks Pads) 1 applic QID PRN TOPICAL 07/31/16 09:30 07/31/16 13:10 (Piper-Colace) 2 tab Q12H PRN PO 07/31/16 09:30 (Mag-Al Plus Susp Liq) 15 ml Q8H PRN PO 07/31/16 09:30 (Trandate) 100 mg Q12HR PO 08/01/16 09:00 08/01/16 08:41 Assessment/Plan Problem List: (1) Pre-eclampsia (2) Gestational [-induced] hypertension without significant proteinuria , third trimester (3) Elderly primigravida in third trimester Assessment and Plan PPD#1; pre-eclampsia; BPs slightly elevated, plan to stop mag., start labetalol. Discharge Planning not meeting criteria Rickie Martinez MD Aug 01, 2016 08:47
[2016-08-02 04:10] VITALS: BP 156/94; PULSE 68; RESP 18
[2016-08-02 08:06] VITALS: BP 153/97; PULSE 81; RESP 20; TEMP 98.1
[2016-08-02] MEDS: LABETALOL HCL 100 MG TAB PO SCH (08:12)
--- NOTE | 2016-08-02 08:19 | HHI.OB ---
Subjective Post Day: 2 Remarks s/p magnesium pp, on labetalol 100mg bid, morning dose pending. no salmeron, blurry vision or ruq pain Objective Vitals/I&O Vital Signs Date Time Temp Pulse Resp B/P Pulse Ox O2 Delivery O2 Flow Rate FiO2 08/02/16 04:10 68 156/94 08/02/16 04:10 18 08/01/16 22:00 90 18 143/95 08/01/16 22:00 97.8 08/01/16 16:40 98.0 90 18 136/84 08/01/16 10:10 98.1 91 18 135/87 Objective Remarks GENERAL: Well-nourished, well-developed patient. CARDIOVASCULAR: Regular rate and rhythm without murmurs, gallops, or rubs. RESPIRATORY: Breath sounds equal bilaterally. No accessory muscle use. ABDOMEN/GI: Abdomen soft, non-tender. Fundus: Firm, non-tender at umbilicus. GENITOURINARY: Light to moderate bleeding. EXTREMITIES: No cyanosis or edema, non-tender, without signs of DVT NEURO: nonfocal, DTR 1+. Medications and IVs Current Medications Medications (Trade) Dose Ordered Sig/Pao Route Start Time Stop Time Status Last Admin (Ambien) 5 mg HS PRN PO 07/29/16 12:30 Ondansetron HCl 4 mg 4 mg Q6H PRN PO 07/29/16 12:30 Lactated Ringer's 1,000 ml @ 125 mls/hr Q8H IV 07/30/16 08:49 07/31/16 00:49 (Lr 1000 ml Inj) 1,000 ml @ 3,000 mls/hr Q20M PRN IV 07/30/16 08:49 (Zofran Inj) 4 mg Q6H PRN IV 07/30/16 09:00 Mineral Oil 10 ml 10 ml UNSCH PRN TOPICAL 07/30/16 09:00 07/31/16 09:47 Oxytocin 500 ml @ 0 mls/hr TITRATE IV 07/31/16 00:00 07/31/16 00:40 Fentanyl/ Bupivacaine HCl 100 ml @ 0 mls/hr TITRATE EPIDURAL 07/31/16 04:30 Lactated Ringer's 1,000 ml @ 75 mls/hr [id number] IV 07/31/16 08:45 08/01/16 03:17 (Magnesium Sulfate 40 Gm Premix) 1,000 ml @ 50 mls/hr Q20H IV 07/31/16 08:45 08/01/16 03:19 (Calcium Gluconate Inj) 1 gm UNSCH PRN IV PUSH 07/31/16 09:15 (NS Flush) 2 ml BID IV 07/31/16 09:30 08/01/16 08:40 (NS Flush) 2 ml UNSCH PRN IV 07/31/16 09:30 (Motrin) 600 mg Q6H PRN PO 07/31/16 09:30 08/01/16 08:40 (Percocet 5-325 Mg) 1 tab Q4H PRN PO 07/31/16 09:30 (Percocet 5-325 Mg) 2 tab Q4H PRN PO 07/31/16 09:30 (Americaine 20% Top Spr) 1 spray Q4H PRN TOPICAL 07/31/16 09:30 (Tucks Pads) 1 applic QID PRN TOPICAL 07/31/16 09:30 07/31/16 13:10 (Piper-Colace) 2 tab Q12H PRN PO 07/31/16 09:30 (Mag-Al Plus Susp Liq) 15 ml Q8H PRN PO 07/31/16 09:30 (Trandate) 100 mg Q12HR PO 08/01/16 09:00 08/02/16 08:12 Assessment/Plan Problem List: (1) Pre-eclampsia (2) Gestational [-induced] hypertension without significant proteinuria , third trimester (3) Elderly primigravida in third trimester Assessment and Plan PPD#2; pre-eclampsia; s/p mag., on labetalol 100mg bid, bp in mild range. Am dose of labetalol pending. If BP cont to be mild range, will d/c home today will take bp bid at home. call parameters given. will f/u in 1 wk for bp check in clinic Discharge Planning today Nat Grace MD Aug 02, 2016 08:19
[2016-08-02] MEDS ORDERED: LABE100T2 PO (08:20)
--- NOTE | 2016-08-02 08:21 | HHI.DCPOC ---
Discharge Care Plan Diagnosis: (1) Pre-eclampsia (2) (spontaneous vaginal delivery) Your Health Problems Are: Vaginal delivery Report Symptoms to Your Doctor -Temperate above 100.5 degrees -Redness, of incision or excessive or foul smelling drainage -Unusual pain or calf pain -Increased vaginal bleeding -Painful or difficulty urinating -Feelings of extreme sadness or anxiety after 2 weeks Goals to Promote Your Health * To prevent worsening of your condition and complications * To maintain your health at the optimal level Directions to Meet Your Goals Take your medications as prescribed Follow your dietary instruction Follow activity as directed Ensure plenty of rest for recovery Drink fluids for hydration Keep your appointments as scheduled Take your immunizations and boosters as scheduled If your symptoms worsen call your PCP, if no PCP go to Urgent Care Center or Emergency Room Smoking is Dangerous to Your Health. Avoid second hand smoke Call the 24-hour crisis hotline for domestic abuse at Nat Grace MD Aug 02, 2016 08:21
[2016-08-02] MEDS: SODIUM CHLORIDE 0.9% FLUSH 5 ML FLUSH IV SCH (09:00)
[2016-08-02 10:37] VITALS: BP 148/85; PULSE 81
[2016-08-03 12:11] LABS: BATH SALTS (MDPV) UR NEG (NEG); ECSTASY (MDMA) UR NEG (NEG); HEROIN (6-ACETYLMORPHINE) UR NEG (NEG); K2 SPICE UR NEG (NEG); OBMETHADONE UR NEG (NEG); OXYCODONE (PERCODAN) NEG (NEG); PHENCYCLIDINE URINE NEG (NEG)
== END 2016-08-02 14:37 | disposition home or self-care (01) | DRG 775 ==
LOC: INTOOBSV 12:09 → H2EB 12:09 → H2EA 12:38 → OBSVTOIN 07-30 08:52 → H2EB 07-30 15:23 → H2EA 07-31 10:56 → H1EA 08-01 09:18
PROVIDERS: ADMIT Obstetrics & Gynecology; ATTEND Obstetrics & Gynecology
PROC: 3E0P7GC Introduction of Other Therapeutic Substance into Female Reproductive, Via Natural or Artificial Opening (ICD-10-PCS; 2016-07-30)
PROC: 10E0XZZ Delivery of Products of Conception, External Approach (ICD-10-PCS; principal; 2016-07-31)
PROC: 0KQM0ZZ Repair Perineum Muscle, Open Approach (ICD-10-PCS; 2016-07-31)
DX: O14.14 Severe pre-eclampsia complicating childbirth (principal); O71.4 Obstetric high vaginal laceration alone; N97.9 Female infertility, unspecified; O09.523 Supervision of elderly multigravida, third trimester; Z37.0 Single live birth; Z3A.36 36 weeks gestation of pregnancy
CPT/HCPCS: 59025; 80048; 80053; 80307; 81001; 84450; 84460; 84550; 85025; 85027; 86900; 86901; 87086; 88307; G0378; G0481; J2590; J3010; J3475; J7120